=== PATIENT | female | born 1930 ===

== ENCOUNTER → 2016-10-17 | Day surgery (SDC) | payer OTHER, MEDICAID ==
--- NOTE | 2016-10-14 12:39 | Pre-op HX & Phy Repo 2 SIG ---
DATE OF ADMISSION: 10/17/2016 PREOPERATIVE DIAGNOSIS: Recurrent vitreous hemorrhage, right eye. BRIEF NOTE: This is one of several admissions for this 86-year-old lady with a history of severe proliferative diabetic retinopathy and secondary glaucoma. The patient has had diabetes for many years and has had problems associated with diabetic retinopathy. She has had bilateral cataract surgery, bilateral valve placements x2, and had prior vitrectomies. She was doing well early this year with recent __laser___ in the right eye, but developed a moderately dense vitreous hemorrhage, which has failed to clear. She is left with severe compromise and is admitted for vitrectomy and wash around that side. PAST MEDICAL HISTORY: Remarkable for diabetes for almost 20 years. She has no allergies. She is on multiple medications for diabetes and hypertension. Best vision at the time of admission was counting fingers at one foot in the right eye and light perception in the left. The pressures were 18 and 15. The anterior segment on the right eye showed fixed dilation of the pupil. The left showed a poor dilation and an amaurotic pupil. The anterior segment on the right showed a clear cornea. There were tube shots at 10 and 2. 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 The posterior chamber lens was noted. The left fundus examination showed clear cornea and two tube shots. There was rubeosis. The posterior chamber lens was present as well. Fundus examination of the right eye showed a moderately dense vitreous hemorrhage with a largest clot just below the nerve. The disk was glaucomatous. The retina appeared attached. The left fundus showed very pale nerve with at least a 0.85 cup. There was extensive laser, but no vitreous hemorrhage. PHYSICAL EXAMINATION: GENERAL: To be performed by Dr Castro . ASSESSMENT: Nonclearing vitreous hemorrhage, right eye. PLAN: The plan is to perform a pars plana vitrectomy with washout, additional endolaser, and Avastin injection of the right eye. The risks and benefits of surgery gone over the patient with potential infection, hemorrhage, glaucoma, remote possibility of loss of the eye, and the risk of anesthesia was discussed. The patient understands and consents to surgery to be performed on Monday. Drew Judge M.D. DR: Sravan JOB#: [id number] CC: MINDY
[2016-10-17] VITALS (8 sets, daily range): BP systolic 102–150; BP diastolic 41–96
[~2016-10-17] VITALS: Ht 157.5 cm; Wt 49.9 kg
[~2016-10-17] MED LIST: AMARYL1 MG PO; ARIMIDEX1 MG PO; Avastin 10mg Inj IVITRE ONE; BSS 15ml BTL ONE; BSS 500ml btl ONE; Bupivacaine 0.75% 30ml vial INJ ONE; Cyclopentolate 1% Opth Sol ONE; Dexamethasone 4mg/ml vial ONE; EPINEPHrine 1mg/1ml Amp ONE; Flurbiprofen 0.03% Opth Sol 2.5ml ONE; GLUCOPHAGE500 MG PO; Gatifloxacin Opth Solution 0.5% ONE; Goniosol 2.5% Opth Soln - 15ml ONE; Hydromorphone 0.5mg/0.5ml inj IVP PRN; Kenalog-10 5ml Inj ONE; Kenalog-40 1ml Vial ONE; LOTENSIN10 MG PO; Lidocaine 2% MPF 5ml Vial INJ ONE; Maxitrol Opth Oint 3.5gm ONE; Midazolam 2mg/2ml Inj ONE; Norco 5mg/325mg tab ORAL PRN; OYSCO 500+D TA1 EACH PO; Phenylephrine 2.5% Op Soln ONE; Povidone-Iodine 5% opth solution ONE; Pred Forte 1% Opth Susp 1ml RIGHT EYE SCH; Propofol 10mg/ml 20ml IV ONE; Tetracaine 0.5% Opth Soln ONE; Triamcinolone 40mg/ml PF Vial ONE; fentaNYL 100 mcg/2 mL IV ONE; fentaNYL 100 mcg/2 mL IV PRN
--- NOTE | 2016-10-17 06:28 | Pre-Procedure Note/Attestation ---
Pre-Procedure Note/Attestation Complete Prior to Procedure Planned Procedure: right Procedure Narrative: PPV, washout, endolaser, Avastin injection R eye Indications for Procedure Pre-Operative Diagnosis: Recurrent vitreous heme R eye Attestation I attest that I discussed the nature of the procedure; its benefits; risks and complications; and alternatives (and the risks and benefits of such alternatives ), prior to the procedure, with the patient (or the patient's legal appliance service representative). I attest that, if there was a reasonable possibility of needing a blood transfusion, the patient (or the patient's legal appliance service representative) was given the [facility] standardized written summary, pursuant to the Isaac Roca Blood Safety Act ([place] Health and Safety Code # 1645, as amended). I attest that I re-evaluated the patient just prior to the surgery and that there has been no change in the patient's H&P, except as documented below: CAL HINSON Oct 17, 2016 06:28
[2016-10-17] MEDS: Cyclopentolate 1% Opth Sol RIGHT EYE SCH ×3 (06:45→07:19)
[2016-10-17] MEDS: Flurbiprofen 0.03% Opth Sol 2.5ml RIGHT EYE SCH ×3 (06:45→07:19)
[2016-10-17] MEDS: Phenylephrine 2.5% Op Soln RIGHT EYE SCH ×3 (06:45→07:19)
[2016-10-17] MEDS: Gatifloxacin Opth Solution 0.5% RIGHT EYE SCH ×3 (06:46→07:19)
[2016-10-17 08:23] LABS: EOSINOPHILS % (AUTO) 5.8 % (0.0-3.0); LYMPHOCYTES % (AUTO) 31.7 % (20.0-45.0); MEAN CORPUSCULAR HEMOGLOBIN 31.2 PG (27.0-31.0); MEAN CORPUSCULAR HGB CONC 33.1 G/DL (32.0-36.0); MEAN CORPUSCULAR VOLUME 94 FL (80-99); MEAN PLATELET VOLUME 8.8 FL (6.5-10.1); MONOCYTES % (AUTO) 8.8 % (1.0-10.0); NEUTROPHILS % (AUTO) 52.6 % (45.0-75.0); PLATELET COUNT 151 K/UL (150-450); RED BLOOD COUNT 3.91 M/UL (4.20-5.40); RED CELL DISTRIBUTION WIDTH 13.3 % (11.6-14.8); WHITE BLOOD COUNT 6.3 K/UL (4.8-10.8)
--- NOTE | 2016-10-17 08:28 | Anethesia Preoperative Eval ---
Anesthesia Pre-op PMH/ROS General Date of Evaluation: Oct 17, 2016 Time of Evaluation: 07:25 Anesthesiologist: Arleen ASA Score: ASA 2 Mallampati Score Class I : Soft palate, uvula, fauces, pillars visible Class II: Soft palate, uvula, fauces visible Class III: Soft palate, base of uvula visible Class IV: Only hard plate visible Mallampati Classification: Class I Surgeon: Nu Diagnosis: Vitreous Hemorhage Surgical Procedure: Vitrectomy Family History: no anesthesia problems Allergies: Coded Allergies: No Known Allergies (Unverified , 05/25/12) Medications: see eMAR Past Medical History Cardiovascular: Reports: HTN Pulmonary: Denies: COPD, VAUGHN, asthma, other Gastrointestinal/Genitourinary: Denies: CRI, ESRD, GERD, other Neurologic/Psychiatric: Denies: CVA, TIA, dementia, depression/anxiety, other Endocrine: Reports: DM HEENT: Reports: cataract (L) Hematology/Immune: Denies: DVT, anemia, bleeding disorder, other Musculoskeletal/Integumentary: Reports: DJD Anesthesia Pre-op Phys. Exam Physician Exam Last Vital Signs Date Time Temp Pulse Resp B/P Pulse Ox O2 Delivery O2 Flow Rate FiO2 10/17/16 07:27 98.1 72 20 150/71 98 Room Air Constitutional: NAD Neurologic: CN 2-12 intact Cardiovascular: RRR Airway Exam Mallampati Score: Class I Anesthesia Pre-op A/P Labs Hematology Test 10/17/16 06:00 White Blood Count 6.3 K/UL (4.8-10.8) Red Blood Count 3.91 M/UL (4.20-5.40) L Hemoglobin 12.2 G/DL (12.0-16.0) Hematocrit 36.9 % (37.0-47.0) L Mean Corpuscular Volume 94 FL (80-99) Mean Corpuscular Hemoglobin 31.2 PG (27.0-31.0) H Mean Corpuscular Hemoglobin Concent 33.1 G/DL (32.0-36.0) Red Cell Distribution Width 13.3 % (11.6-14.8) Platelet Count 151 K/UL (150-450) Mean Platelet Volume 8.8 FL (6.5-10.1) Neutrophils (%) (Auto) 52.6 % (45.0-75.0) Lymphocytes (%) (Auto) 31.7 % (20.0-45.0) Monocytes (%) (Auto) 8.8 % (1.0-10.0) Eosinophils (%) (Auto) 5.8 % (0.0-3.0) H Basophils (%) (Auto) 1.0 % (0.0-2.0) Chemistry Test 10/17/16 06:00 Sodium Level Pending Potassium Level Pending Chloride Level Pending Carbon Dioxide Level Pending Blood Urea Nitrogen Pending Creatinine Pending Estimat Glomerular Filtration Rate Pending Glucose Level Pending Calcium Level Pending NIKHIL ARRINGTON M.D. Oct 17, 2016 08:28
[2016-10-17 08:34] LABS: ANION GAP 14 (5-15); CALCIUM 9.7 mg/dL (8.6-10.2); CARBON DIOXIDE 24 mEQ/L (20-30); CHLORIDE 99 mEQ/L (98-107); CREATININE 0.8 mg/dL (0.5-0.9); HEMOLYSIS 12; POTASSIUM 4.3 mEQ/L (3.4-4.9); SODIUM 137 mEQ/L (135-145)
--- NOTE | 2016-10-17 08:48 | Brief Operative Note ---
Immediate Post Operative Note Operative Note Chief Complaint: Blurred vision OD Pre-op Diagnosis: Recurrent vitreous heme R eye Procedure: PPV. membrane peel, endolaser 1209 spots, Kenalog injection, Avastin injection 1.25mg OD Post-op Diagnosis: same as pre-op Surgeon: nisha Anesthesiologist: callie Anesthesia: general, other - LMA general with block Specimen: none Complications: none Condition: stable Estimated Blood Loss: none Drains: none Implant(s) used?: No CAL HINSON Oct 17, 2016 08:48
--- NOTE | 2016-10-17 09:33 | Immediate Post-Op Evaluation ---
Immediate Post-Op Evalulation Immediate Post-Op Evalulation Procedure: Vitrectomy Date of Evaluation: Oct 17, 2016 Time of Evaluation: 08:55 IV Fluids: 300 Blood Products: 0 Estimated Blood Loss: 0 Urinary Output: 0 Blood Pressure Systolic: 139 Blood Pressure Diastolic: 80 Pulse Rate: 75 Respiratory Rate: 20 O2 Sat by Pulse Oximetry: 99 Temperature (Fahrenheit): 98 Pain Score (1-10): 2 Nausea: No Vomiting: No Complications na Patient Status: awake Hydration Status: adequate Given Within 1 Hr of Incision: NIKHIL Whitney M.D. Oct 17, 2016 09:33
--- NOTE | 2016-10-17 09:35 | 48 Hour Post Anesthesia Eval ---
Post Anesthesia Evaluation Procedure: Vitrectomy Date of Evaluation: Oct 17, 2016 Time of Evaluation: 09:34 Blood Pressure Systolic: 130 0: 80 Pulse Rate: 76 Respiratory Rate: 20 Temperature (Fahrenheit): 98 O2 Sat by Pulse Oximetry: 99 Airway: patent Nausea: No Vomiting: No Pain Intensity: 2 Hydration Status: adequate Cardiopulmonary Status: na Mental Status/LOC: patient returned to baseline Follow-up Care/Observations: na Post-Anesthesia Complications: na Follow-up care needed: N/A NIKHIL ARRINGTON M.D. Oct 17, 2016 09:35
--- NOTE | 2016-10-17 09:53 | Immediate Post-Op Evaluation ---
Immediate Post-Op Evalulation Immediate Post-Op Evalulation Procedure: Vitrectomy Date of Evaluation: Oct 17, 2016 Time of Evaluation: 09:52 IV Fluids: 200 Blood Products: 0 Estimated Blood Loss: 0 Urinary Output: 0 Blood Pressure Systolic: 160 Blood Pressure Diastolic: 75 Pulse Rate: 65 Respiratory Rate: 20 Temperature (Fahrenheit): 98 Pain Score (1-10): 2 Nausea: No Vomiting: No Complications na Patient Status: awake Hydration Status: adequate Given Within 1 Hr of Incision: NIKHIL Whitney M.D. Oct 17, 2016 09:53
--- NOTE | 2016-10-17 09:54 | 48 Hour Post Anesthesia Eval ---
Post Anesthesia Evaluation Procedure: Vitrectomy Date of Evaluation: Oct 17, 2016 Time of Evaluation: 09:53 Blood Pressure Systolic: 160 0: 80 Pulse Rate: 70 Respiratory Rate: 29 Temperature (Fahrenheit): 98 O2 Sat by Pulse Oximetry: 98 Airway: patent Nausea: No Vomiting: No Pain Intensity: 2 Hydration Status: adequate Cardiopulmonary Status: stable Mental Status/LOC: patient returned to baseline Follow-up Care/Observations: na Post-Anesthesia Complications: na Follow-up care needed: N/A NIKHIL ARRINGTON M.D. Oct 17, 2016 09:54
--- NOTE | 2016-10-17 14:28 | Operative Note - Dictated ---
DATE OF OPERATION: 10/17/2016 PREOPERATIVE DIAGNOSIS: Recurrent vitreous hemorrhage, right eye. POSTOPERATIVE DIAGNOSIS: Recurrent vitreous hemorrhage, right eye. PROCEDURES: 1. Pars plana vitrectomy. 2. Extensive membrane elevation and dissection. 3. Kenalog injection. 4. Endolaser. 5. Avastin injection, right eye. SURGEON: Drew Judge M.D. SECOND MATE: None. ANESTHESIA: LMA general. ANESTHESIOLOGIST: Dr. Bacon. JUSTIFICATION FOR SURGERY: This is an 86-year-old lady with long history of diabetes and venous occlusive disease, who has developed recurrent vitreous hemorrhage, that does not completely respond to in-office laser and Avastin injections. BRIEF NOTE: The patient was brought to the operative room and placed on OR table in supine position. After time-out was performed and agreed upon by the staff, general LMA anesthesia was induced by Dr. Bacon. A limited retrobulbar and Van Lint block were given to control postoperative pain and limit intraoperative anesthetics. The patient was then prepped and draped in the normal manner. A lid speculum was inserted into the right eye. Using a 23-gauge trocar system, cannulae were placed in all except infranasal quadrant taking care to avoid pre-placed valve plates. Infusion was secured inferotemporally. Vitrectomy was begun posterior to the lens implant. A central core vitrectomy was done followed by peripheral vitrectomy leaving a small vitreous skirt. This was accomplished with the aid of Kenpetros to identify vitreous and the wide-angle viewing system. The vitrectomy was carried further posteriorly where there was extensive blood on the surface of the retina and a dense preretinal and hyaloid membrane. The membrane was engaged just temporal to the optic nerve and slightly elevated. Using the vitrector as a cutter and pick, the membrane was gently elevated and dissected cleanly with no residual traction being left. The retina was not damaged in this maneuver. The infusion pressure was lowered and no active hemorrhaging was seen. The endolaser was then brought to the eye and power of 0.3 sifuentes and duration 0.2 seconds, a total of 1249 lesions were applied in a broad band going nearly out to the pars plana and coming in just posterior to the equator. No problems were encountered. Scleral depression was done and no peripheral pathology of significance was noted. The superior cannulae were then removed and the wounds noted to be self-sealing. The infusion line was disconnected and through this cannula, Avastin, 1.25 mg was injected. The eye was reinflated and this cannula also removed. After massage of the sclera, the wounds were all noted to be self-sealing. Subconjunctival Decadron and gentamicin were then injected inferiorly and Gatiflox, prednisolone, and atropine drops were instilled. Maxitrol ointment was then placed before the eye was patched and shielded. The patient was taken to recovery in excellent condition after smooth reversal of anesthesia by Dr. Bacon. There were no problems. Drew Judge M.D. DR: Pancho JOB#: [id number] CC: Drew Judge M.D.
--- NOTE | 2016-10-18 21:58 | Pre-op HX & Phy Repo 2 SIG ---
DATE OF ADMISSION: 10/17/2016 NOTE: POOR AUDIO REASON FOR EVALUATION: I was asked by Dr. Drew Judge to see this 86-year-old, [place]-speaking female who is in for an elective surgery on the right eye. Please see for multi slide machine tender's History and Physical by Dr. Drew Judge. The patient vitreous hemorrhage right eye. Information obtained further by son at bedside. The patient examined. Chart reviewed. The patient is alert, elderly 86-year-old female. PAST MEDICAL HISTORY: Remarkable for hypertension and type 2 diabetes mellitus. Denies history of stroke or seizures. No history of heart attack or chest pain. No history of renal insufficiency or failure. No respiratory problem. The patient has no anemia. No thyroid problem. No history of glaucoma. PAST SURGICAL HISTORY: Hysterectomy, left mastectomy five years ago, eye surgery. FAMILY HISTORY: Both parents of old age. ALLERGIES: Not known. CURRENT MEDICATIONS: benazepril, metformin, calcium supplement, , multivitamins for glaucoma. HABITS: Denies tobacco, alcohol, or street drug use. PHYSICAL EXAMINATION: GENERAL: Alert elderly female acute distress. VITAL SIGNS: Blood pressure 150/71, temperature 98.7, pulse 72 and regular, and O2 saturation 98% on room air. HEENT: Head is normocephalic. Ears clear. Normal hair growth. No hearing impairment. Eyes, full description per Dr. Drew Judge. Mild absence of the teeth. She has a denture at home. SKIN: Dry, warm, and pale. Lymph nodes are not enlarged. NECK: No jugular venous distention. Carotid artery +2. Trachea is midline. No palpable mass. CHEST: No deformity. Post left radical mastectomy. LUNGS: Clear to auscultation and percussion. No rales or rhonchi. HEART: no murmur and no ectopy. ABDOMEN: Soft. No palpable mass. No organomegaly. No rebound. EXTREMITIES: No edema. No calf tenderness. GENITOURINARY: No CVA tenderness. Denies dysuria. NEUROLOGIC: No nystagmus. No asymmetry or tremor. DIAGNOSTIC STUDIES: Electrocardiogram, normal sinus rhythm, 73 per minute, nonspecific ST and T-wave abnormalities. Blood sugar 122. IMPRESSION: 1. . 2. Hypertension. 3. 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 4. History of left breast cancer. 5. Glaucoma.. PLAN: 1. . Dr. Drew Judge pressure control. The patient from last night. Lab working pending. The patient's condition will be optimized for surgery. Thank you very much, , for the privilege to participate presurgical care of this interesting patient. Abelino Castro M.D. DR: MATI JOB#: [id number] CC:
--- NOTE | 2016-10-20 14:11 | Cardiology Report ---
APPROVED REPORT EKG Measurement Heart [id number] Normal sinus rhythm Nonspecific ST and T wave abnormality Abnormal ECG
== END | disposition home or self-care (01) ==
LOC: SUR 05:51
DX: H43.11 Vitreous hemorrhage, right eye (principal); E11.3591 Type 2 diabetes mellitus with proliferative diabetic retinopathy without macular edema, right eye; Z79.84 Long term (current) use of oral hypoglycemic drugs; H40.51X0 Glaucoma secondary to other eye disorders, right eye, stage unspecified; H21.1X1 Other vascular disorders of iris and ciliary body, right eye; I10 Essential (primary) hypertension; M19.90 Unspecified osteoarthritis, unspecified site; Z85.3 Personal history of malignant neoplasm of breast; Z90.12 Acquired absence of left breast and nipple; Z90.710 Acquired absence of both cervix and uterus
CPT/HCPCS: 36415; 67041; 80048; 82962; 85025; 93005; J0171; J1100; J2250; J2405; J2704; J3010; J3301; J3470; J3490; J9035; 94003; 94150; J3300